=== PATIENT | male | born 1975 | race Caucasian/White ===

== ENCOUNTER 2018-11-08 18:22 | Emergency (ER) | payer BC, OTHER ==
[2018-11-08 19:01] VITALS: BP 143/98
--- NOTE | 2018-11-08 19:23 | UC ---
Dental HPI - HPI Summary HPI Summary: 43-year-old male with 5 day history of dental pain to his right upper incisor. States he has a history of grinding his teeth and has multiple teeth in very poor condition. He is noted some mild facial swelling, tenderness, and purulent drainage at the base of the tooth. Taking [id number] ibuprofen with some relief in the pain. States he contacted his dentist earlier today who was out of town and recommended he be evaluated at urgent care. Denies fever, chills, trismus, dysphagia, or difficulty breathin - History of Current Complaint Chief Complaint: UCDentalProblem Stated Complaint: DENTAL CONCERN Time Seen by Provider: 11/08/18 19:18 Hx Obtained From: Patient Pain Intensity: 8 - Allergies/Home Medications Allergies/Adverse Reactions: Allergies Allergy/AdvReac Type Severity Reaction Status Date / Time penicillin G Allergy Severe Anaphylatic Verified 11/08/18 18:54 Shock Home Medications: Home Medications Ibuprofen [Motrin Ib] 800 mg PO PRN 11/08/18 [History] PMH/Surg Hx/FS Hx/Imm Hx Previously Healthy: Yes - Denies significant PMH - Surgical History Surgical History: Yes Surgery Procedure, Year, and Place: [facility] - Family History Known Family History: Positive: Non-Contributory - Social History Occupation: Employed Full-time Lives: With Family Alcohol Use: None Substance Use Type: None Smoking Status (MU): Never Smoked Tobacco Review of Systems All Other Systems Reviewed And Are Negative: Yes Constitutional: Negative: Fever, Chills ENT: Positive: Dental Pain. Negative: Sore Throat, Other - Trismus Respiratory: Positive: Negative Cardiovascular: Positive: Negative Gastrointestinal: Positive: Negative Genitourinary: Positive: Negative Musculoskeletal: Positive: Negative Neurological: Positive: Negative Psychological: Positive: Negative Is Patient Immunocompromised?: No Physical Exam - Summary Physical Exam Summary: GENERAL APPEARANCE: Well developed, well nourished, alert and cooperative, and appears to be in no acute distress. HEAD: Mild facial swelling with tenderness immediately below nose. THROAT: Pharynx normal. No tonsilar inflammation, swelling, exudate, or lesions. Uvula midline. Multiple teeth in various degrees of decay and wear. Significant decay to the right central incisor with gingival erythema. No induration, fluctuance, or drainage noted. No trismus NECK: Neck supple, non-tender without lymphadenopathy. CARDIAC: Normal S1 and S2. No S3, S4 or murmurs. Rhythm is regular. There is no peripheral edema, cyanosis or pallor. Extremities are warm and well perfused. Capillary refill is less than 2 seconds. Peripheral pulses intact. LUNGS: Clear to auscultation without rales, rhonchi, wheezing or diminished breath sounds. ABDOMEN: Positive bowel sounds. Soft, nondistended, nontender. No guarding or rebound. No masses or hepatosplenomegally. MUSKULOSKELETAL: ROM intact to all extremities. No joint erythema or tenderness. Normal muscular development. Normal gait. SKIN: Skin normal color, texture and turgor with no lesions or eruptions. Triage Information Reviewed: Yes Vital Signs: Initial Vital Signs Temp 97.8 F 11/08/18 18:55 Pulse 67 11/08/18 18:55 Resp 16 11/08/18 18:55 BP 143/98 11/08/18 18:55 Pulse Ox 100 11/08/18 18:55 Vital Signs Reviewed: Yes Dental Complaint Course/Dx - Course Course Of Treatment: 43-year-old male with 5 day history of dental pain to his right upper incisor. States he has a history of grinding his teeth and has multiple teeth in very poor condition. He is noted some mild facial swelling, tenderness, and purulent drainage at the base of the tooth. Taking [id number] ibuprofen with some relief in the pain. States he contacted his dentist earlier today who was out of town and recommended he be evaluated at urgent care. Denies fever, chills, trismus, dysphagia, or difficulty breathing. Afebrile. Mildly hypertensive otherwise vital signs stable. Exam revealed mild facial swelling with tenderness immediately below nose, multiple teeth in various degrees of decay and wear, significant decay to the right central incisor with gingival erythema, no induration, fluctuance, or drainage noted, no trismus. Will start him on antibiotic as of 300 mg 3 times a day for possible dental infection. He is to continue to use [id number] ibuprofen as needed for pain. He is to call his dentist first thing Sunday morning to schedule appointment. Anticipatory guidance and warning symptoms were reviewed with the patient. Verbalizes understanding and agrees plan of care. - Differential Dx/Diagnosis Differential Diagnosis/Dx: Dental Abscess, Dental Caries, Fractured Tooth, Odontogenic Pain, Peridontic Disease Provider Diagnosis: Pain, dental Discharge - Sign-Out/Discharge Documenting (check all that apply): Patient Departure All imaging exams completed and their final reports reviewed: No Studies - Discharge Plan Condition: Stable Disposition: HOME Prescriptions: Clindamycin HCl 300 mg PO TID #30 capsule Patient Education Materials: Toothache (ED) Referrals: No Primary Care Phys,NOPCP [Primary Care Provider] - Additional Instructions: Start clindamycin 300 mg three times a day for 10 days. Be sure to complete the entire course even if you have improvement. Take acetaminophen (Tylenol) or ibuprofen (Advil, Motrin) according to directions as needed for pain. Be sure to rinse your mouth out with a warm salt water solution after every time you eat to remove any debris. Make an appointment with your dentist at next available appointment. Seek immediate medical attention in the emergency room if you develop fever greater than 100.5 F, you are unable to open of close your mouth, are unable to swallow, have difficulty breathing, or any worsening of symptoms. - Billing Disposition and Condition Condition: STABLE Disposition: Home
== END 2018-11-08 19:40 | disposition home or self-care (01) ==
LOC: UCCORT 18:22
DX: K08.89 Other specified disorders of teeth and supporting structures (principal); Z88.0 Allergy status to penicillin
CPT/HCPCS: 99202; G0463